=== PATIENT | female | born 1980 | race Caucasian/White ===

== ENCOUNTER 2022-06-23 12:59 | Outpatient (REF) | payer OTHER, SELFPAY ==
--- NOTE | 2022-06-23 13:00 | CRLHL7_ITS ---
For Patients: As a result of the Century Cures Act, medical imaging exams and procedure reports are released immediately into your electronic medical record. You may view this report before your referring provider. If you have questions, please contact your health care provider. BILATERAL SCREENING MAMMOGRAM WITH COMPUTER-AIDED DETECTION AND TOMOSYNTHESIS TECHNIQUE: CC and MLO views were obtained. These mammographic images have been obtained using full-field digital technique. These mammographic images were interpreted with the benefit of computer-aided detection. Breast tomosynthesis was used in this interpretation. COMPARISON FILM: 09/22/20 screening, 08/23/18 diagnostic. FINDINGS: There are scattered areas of fibroglandular density. IMPRESSION: There is no radiographic evidence for malignancy. ASSESSMENT: BI-RADS Category 1: Negative RECOMMENDATION: Routine screening mammogram in 1 year. A lay language report of this examination will be provided to the patient. ENRIKE ECKERT M.D. Diagnostic Radiologist [email or web address] Transcribed: 06/26/2022, 2:[address]/Dictated by: Enrike Eckert MD @ 06/26/2022 9:17:00 AM (Electronically Signed)
--- OUTSIDE RECORDS SUMMARY | 2022-06-23 13:17 | XMS_ITS | Clinical Summary ---
:1980 Author Organization [employer] [facility] [place] [address] Care Team Providers Name Role Phone Pcp, No Primary Care Provider Unavailable Allergies No known active allergies Medications Medication Sig Dispensed Refills Start Date End Date Status gabapentin Take 2 capsules by 2 12/28/2014 Active (NEURONTIN) 300 mg mouth 2 times daily capsule if needed. naproxen (NAPROSYN) Take 1 tablet by 2 12/28/2014 Active 500 mg tablet mouth 2 times daily with meals. Active Problems Problem Noted Date Major depressive disorder, recurrent episode, severe, without mention of 06/23/2011 psychotic behavior Supervision of other normal 05/31/2011 Left low back pain 04/29/2009 Herniated disc 04/29/2009 Family History Medical History Relation Name Comments Diabetes Father Hypertension Father Diabetes Maternal Grandfather Diabetes Maternal Grandmother Asthma Mother Diabetes Paternal Grandfather Diabetes Paternal Grandmother Relation Name Status Comments Father Maternal Grandfather Maternal Grandmother Mother Paternal Grandfather Paternal Grandmother Social History Tobacco Use Types Packs/Day Years Used Date Never Smoker Smokeless Tobacco: Never Used Tobacco Cessation: Counseling Given: Yes Alcohol Use Standard Drinks/Week Comments No 0 (1 standard drink = 0.6 oz pure alcoho l) Sex Assigned at Date Recorded Not on file Obstetrics History Para Term AB IAB SAB Ectopic Multiple Living Live Births 3 2 1 1 2 Date Outcome GA Total Labor/2nd/3rd Weight Sex Delivery Anes PTL Victoria A 1 A5 Name Clin Labor Comments: System Generated. Please review and update details. 01/03/2002 32w0d 2.27 kg (5 lb) F Vag 02/17/2004 Term 41w0d 4.08 kg (9 lb) M Last Filed Vital Signs Vital Sign Reading Time Taken Comments Blood Pressure 135/86 02/18/2015 4:37 PM CDT Pulse 90 02/18/2015 4:37 PM CDT Temperature 36.8 ??C (98.3 ??F) 12/04/2011 10:42 AM CDT Respiratory Rate 16 04/29/2009 10:31 AM CDT Oxygen Saturation 99% 02/18/2015 4:37 PM CDT Inhaled Oxygen Concentration - - Weight 106.3 kg (234 lb 6.4 oz) 02/18/2015 4:37 PM CDT Height 163.9 cm (5' 4.53) 02/18/2015 4:37 PM CDT Body Mass Index 39.58 02/18/2015 4:37 PM CDT Plan of Treatment Health Maintenance Due Date Last Done Comments COVID-19 vaccine series (#1) 1980 Tdap 1991 Depression screening for age 12+ 1992 BMI (ht and wt on same day) for 1998 age 18+ Hepatitis C screening for age 1004/21/1998 18-79 Tetanus booster 2000 Influenza for age 9-49 03/16/2022 Pap test for age 21-65 08/11/2023 08/11/2020, 08/11/2020, 10/20/2010, Additional history exists HIV for age 15-65 Completed 10/13/2010 Results Not on filefrom Last 3 Months Advance Directives Latest Code Status on File Code Status Date Activated Date Inactivated Comments Full Code 04/28/2009 2:59 PM 04/29/2009 4:42 PM Care Teams [employer] Relationship Specialty Start Date End Date Pcp, No PCP - General 06/21/18 .
== END 2022-06-23 13:00 | disposition home or self-care (01) ==
LOC: MAMMO 12:59
PROVIDERS: PCP Nurse Practitioner Family; Visit Provider Nurse Practitioner Family
DX: Z12.31 Encounter for screening mammogram for malignant neoplasm of breast (principal)
CPT/HCPCS: 77063; 77067

== ENCOUNTER 2023-01-22 20:15 | Emergency (ER) | payer MEDICAID, SELFPAY ==
[2023-01-22 20:48] VITALS: BP 129/84; PULSE 74; RESP 18; TEMP 36.1; O2SAT 98; BMI 39.9
--- NOTE | 2023-01-22 21:00 | ED_ITS ---
HPI - General Adult General Chief complaint: Back Injury/Pain Stated complaint: Sharp pain in lower back Time Seen by Provider: 01/22/23 20:55 History of Present Illness HPI narrative: Patient here with lower back pain rated at 10/10. Tearful in triage. Has been using ibuprofen and Tylenol without relief. This pain happened yesterday when standing up off the bed, felt a pulling sensation. Old injury there in October after a fall but pain only lasted 2-3 days. 42-year-old woman presenting to the emergency department complaint of severe low back pain. Some years ago did have a successful microdiskectomy of the lumbar spine. She is not having these kind of symptoms. Yesterday the the went to stand up off of her bed and felt a pulling sensation. And the pain now is but throughout the region. She has tried ibuprofen acetaminophen and IcyHot and some cream for cows and ice without relief. No loss of bowel or bladder control. Related Data Home Medications Medication Instructions Recorded Confirmed gabapentin 100 mg capsule 100 mg PO 3XD 01/22/23 01/22/23 lisinopril 10 mg tablet 10 mg PO DAILY 01/22/23 01/22/23 naproxen 500 mg tablet 500 mg PO BID 01/22/23 01/22/23 sertraline 50 mg tablet 50 mg PO QPM 01/22/23 01/22/23 Previous Rx's Medication Instructions Recorded prednisone 20 mg tablet See Rx Instructions .Route 01/22/23 .COMPLEX #18 tabs Allergies Allergy/AdvReac Type Severity Reaction Status Date / Time No Known Drug Allergies Allergy Verified 01/22/23 20:46 Review of Systems Status of ROS: Reports: 6 or more systems reviewed and unremarkable except as noted in History and below PFSH PFS Social History Smoking Status: Never smoker How often do you have a drink containing alcohol: never AUDIT-C Alcohol total score: 0 Non-prescribed substance use: denies use Exam Narrative: Exam Narrative: Pleasant. Clearly uncomfortable with any transitions. Breathing even seems to hurt a little bit. She otherwise appears to be breathing easily. Heart with a regular rate rhythm. Little overweight. Examination of the back does not show any deformity. She is diffusely very tender though with more intense pain in right greater than left SI joint and then right greater than left low lumbar paraspinal musculature. I do not appreciate any deformities. Rather deep low midline depression consistent with surgical scar. Other than pain appears to have full strength throughout. Const: Vital Signs, click to edit/add: Vital Signs - 24 hr 01/22/23 20:48 Temperature 97.0 F L Pulse Rate [Right Pulse Oximeter] 74 Respiratory Rate 18 Blood Pressure [Ri ght Upper Arm] 129/84 Pulse Oximetry 98 Oxygen Delivery Me thod Room Air Documenting provider has reviewed patient's vital signs: yes Course Vital Signs Vital signs: Initial Vital Signs Temperature 97.0 F L 01/22/23 20:48 Temperature Source Temporal Artery Scan 01/22/23 20:48 Pulse Rate 74 01/22/23 20:48 Pulse Rhythm Regular 01/22/23 20:48 Respiratory Rate 18 01/22/23 20:48 Blood Pressure 129/84 01/22/23 20:48 Blood Pressure Mean 99 01/22/23 20:48 Blood Pressure Position Sitting 01/22/23 20:48 Pulse Oximetry 98 01/22/23 20:48 Oxygen Delivery Method Room Air 01/22/23 20:48 Vital Signs Temperature 97.0 F L 01/22/23 20:48 Pulse Rate 74 01/22/23 20:48 Respiratory Rate 18 01/22/23 20:48 Blood Pressure 129/84 01/22/23 20:48 Pulse Oximetry 98 01/22/23 20:48 Oxygen Delivery Method Room Air 01/22/23 20:48 Temperature 97.0 F L 01/22/23 20:48 Pulse Rate 70 01/22/23 21:45 Respiratory Rate 16 01/22/23 21:45 Blood Pressure 144/96 H 01/22/23 21:45 Pulse Oximetry 96 01/22/23 21:45 Oxygen Delivery Method Room Air 01/22/23 21:45 Medical Decision Making MDM Narrative Medical decision making narrative: Does not appear to be a traumatic event. She is not reproduced her preoperative symptoms. I do not think imaging is warranted at this point. Seems to be a back strain possibly with some SI joint involvement. Discussed options of pain management. try to break this pain with injection of Dilaudid and oral ibuprofen. Pain markedly improved on re-evaluation. Still with pain but mobilized. See patient discharge plan. Work note written. Discharge Plan Discharge Clinical Impression: Low back pain, Low back strain, Sacroiliac pain Patient Disposition: Home w/ Parent or Adult Instructions: Back Pain (ED) Additional Instructions: See handout on low back and sacroiliac exercises/stretches. Can take up to 800 mg of ibuprofen or up to 1000 mg of acetaminophen per dose. Alternative to the ibuprofen you might try up to 500 mg naproxen 2 times daily. Remember that each tablet of [place] contains 325 mg of acetaminophen. Be seen if not improved in 5 days or if pain markedly and persistently increases or you have new weakness. Safe travels. Edna folleto sobre ejercicios / estiramientos lumbares y sacroil?acos. Puede phuc hasta 800 mg de ibuprofeno o hasta 1000 mg de paracetamol por dosis. Alternativa al ibuprofeno puede probar hasta 500 mg de naproxeno 2 veces al d?a. Recuerde que cada tableta de [place] contiene 325 mg de acetaminof?n. Se edna? si no mejora en 5 d?as o si el dolor aumenta de forma marcada y persistente o si tiene nueva debilidad. Viajes seguros. Prescriptions: New prednisone 20 mg tablet See Rx Instructions .ROUTE .COMPLEX Qty: 18 0RF Rx Instructions: Take 60 mg po daily for 3 days, 40 mg po daily for 3 days, 20 mg po daily for 3 days No Action lisinopril 10 mg tablet 10 mg PO DAILY gabapentin 100 mg capsule 100 mg PO 3XD sertraline 50 mg tablet 50 mg PO QPM naproxen 500 mg tablet 500 mg PO BID Follow Up/Referrals: Provider,Not a Local [Primary Care Provider] - Stand Alone Forms: [employer] Info Instructions
[2023-01-22] MEDS: IBUPROFEN 400 MG TABLET 800 MG PO (21:26)
[2023-01-22] MEDS: HYDROmorphone 0.5 mg/0.5 ml inj 1 MG IM (21:28)
[2023-01-22 21:45] VITALS: BP 144/96; PULSE 70; RESP 16; O2SAT 96
== END 2023-01-22 22:33 | disposition home or self-care (01) ==
PROVIDERS: Emergency Provider Family Medicine
DX: S39.012A Strain of muscle, fascia and tendon of lower back, initial encounter (principal); M53.3 Sacrococcygeal disorders, not elsewhere classified
CPT/HCPCS: 96372; 99283; 99284; A9270; J1170